=== PATIENT | female | born 1970 | race Caucasian/White ===

== ENCOUNTER 2018-02-26 07:33 | Emergency (ER) | payer BC ==
[2018-02-26 07:42] VITALS: BP 124/90
[2018-02-26] MEDS ORDERED: Ibuprofen TAB* 600 MG PO ONE (08:15)
--- NOTE | 2018-02-26 08:17 | UC ---
Knee Pain HPI - HPI Summary HPI Summary: 47 yo F c/o several days of pain in R lateral knee. Pain worsens when climbing/ descending stairs or when bending the knee. She has no swelling of the knee or leg. Denies injury to the area. Is ambulatory w/o difficulty. Has no known PMH. No reduced ROM. no weakness/numbness. has single relative (an aunt), who of "blood clot." no first degree relatives. meds reviewed w patient - History of Current Complaint Chief Complaint: UCLowerExtremity Stated Complaint: LEG PAIN Time Seen by Provider: 02/26/18 08:11 Hx Obtained From: Patient Hx Last Menstrual Period: 02/16/18 Pain Intensity: 7 - Allergies/Home Medications Allergies/Adverse Reactions: Allergies Allergy/AdvReac Type Severity Reaction Status Date / Time minocycline Allergy Hives Verified 02/26/18 07:44 PMH/Surg Hx/FS Hx/Imm Hx Other History Of: Negative For: Anticoagulant Therapy - Surgical History Surgical History: Yes Surgery Procedure, Year, and Place: GALLBLADDER, 14 YRS AGO, [facility] [place]. TUBAL 2001, [facility] [place]. LEFT LEG SURGERY AGE 17 - FRACTURES - TENDON & LIGAMENT REPAIR FROM ACCIDENT. D&C x2 - Social History Alcohol Use: Rare Alcohol Amount: 1-2 PER YEAR Substance Use Type: None Smoking Status (MU): Former Smoker Amount Used/How Often: PACK A DAY Have You Smoked in the Last Year: No When Did the Patient Quit Smoking/Using Tobacco: 14 YRS Review of Systems Skin: Bruising - varicose veins of legs All Other Systems Reviewed And Are Negative: Yes Physical Exam Triage Information Reviewed: Yes Appearance: Well-Appearing, No Pain Distress, Well-Nourished Vital Signs: Initial Vital Signs Temp 97.2 F 02/26/18 07:37 Pulse 73 02/26/18 07:37 Resp 16 02/26/18 07:37 BP 124/90 02/26/18 07:37 Pulse Ox 98 02/26/18 07:37 Vital Signs Reviewed: Yes Eyes: Positive: Conjunctiva Clear Respiratory: Positive: No respiratory distress, No accessory muscle use Abdomen Description: Positive: Other: - obese. Negative: Distended Musculoskeletal: Positive: Strength Intact, No Edema, Other: - LEs symmetric. RLE warm, well perfused, no calf tenderness, negative Homman's sign. mild TTP of postero-lateral (R) Right knee and extending along lateral superior R lower leg. Negative: ROM Limited @ Neurological: Positive: Alert, Muscle Tone Normal. Negative: Fatigued, Lethargic Psychological: Positive: Age Appropriate Behavior Knee Pain Course/Dx - Course Course Of Treatment: given ibuprofen - Differential Dx/Diagnosis Differential Diagnosis/HQI/PQRI: Contusion, Sprain, Strain, Tendonitis, Other Provider Diagnoses: tendonitis Discharge - Sign-Out/Discharge Documenting (check all that apply): Patient Departure All imaging exams completed and their final reports reviewed: No Studies - Discharge Plan Condition: Stable Disposition: HOME Patient Education Materials: Knee Pain (ED) Referrals: Candido Hidalgo MD [Primary Care Provider] - Additional Instructions: Take ibuprofen 600 mg as needed for pain. If pain persists, see your doctor for referral to an Orthopedist - Billing Disposition and Condition Condition: STABLE Disposition: Home
== END 2018-02-26 08:30 | disposition home or self-care (01) ==
LOC: UCEAST 07:33
DX: M76.9 Unspecified enthesopathy, lower limb, excluding foot (principal); Z88.1 Allergy status to other antibiotic agents; Z87.891 Personal history of nicotine dependence
CPT/HCPCS: 99212; A9270-GY; G0463

== ENCOUNTER 2018-06-12 10:17 | Emergency (ER) | payer BC ==
[2018-06-12 11:07] VITALS: BP 149/77
--- NOTE | 2018-06-12 11:39 | UC ---
Throat Pain/Nasal [place] HPI - HPI Summary HPI Summary: 48 y/o female presents to the urgent care c/o productive cough , sore throat and URI symptoms for the past week. Pt reports symptoms started with the common cold, but now cough is worse at night. Unable to sleep at night due to cough. She had developed mild SOB and mild wheezing since yesterday. Sore throat is 6/ 10. She has taken OYC medications w/o any improvement. LMP:06/04/2018.w/ regular menstrual cycles. Pt denies fever today, chest pain, abdominal pain, N/V/D. - History of Current Complaint Chief Complaint: UCRespiratory Stated Complaint: SORE THROAT, COUGH Time Seen by Provider: 06/12/18 11:38 Hx Obtained From: Patient Hx Last Menstrual Period: 06/08/17 ?: No Onset/Duration: Gradual Onset, Lasting Weeks - 1 week, Still Present, Worse Since - 2 days Severity: Moderate Pain Intensity: 7 Pain Scale Used: 0-10 Numeric - Allergies/Home Medications Allergies/Adverse Reactions: Allergies Allergy/AdvReac Type Severity Reaction Status Date / Time minocycline Allergy Hives Verified 06/12/18 11:07 PMH/Surg Hx/FS Hx/Imm Hx Previously Healthy: Yes Other Endocrine History: anemia Respiratory History: Bronchitis, Pneumonia Other History Of: Negative For: Anticoagulant Therapy - Surgical History Surgical History: Yes Surgery Procedure, Year, and Place: GALLBLADDER, 14 YRS AGO, [facility] – [place]. TUBAL 2001, [facility] – [place]. LEFT LEG SURGERY AGE 17 - FRACTURES - TENDON & LIGAMENT REPAIR FROM ACCIDENT. D&C x2 - Family History Known Family History: Positive: Hypertension, Diabetes - Social History Occupation: Employed Full-time Lives: With Family Alcohol Use: Rare Alcohol Amount: 1-2 PER YEAR Substance Use Type: None Smoking Status (MU): Former Smoker Amount Used/How Often: PACK A DAY Have You Smoked in the Last Year: No When Did the Patient Quit Smoking/Using Tobacco: 14 YRS Review of Systems All Other Systems Reviewed And Are Negative: Yes Constitutional: Positive: Fever - low grade fever at the beginning of symptoms Skin: Positive: Negative Eyes: Positive: Negative ENT: Positive: Sore Throat, Ear Ache - B/L ear pressure, Nasal Discharge - yellowish, Sinus Congestion Respiratory: Positive: Cough - productive w/ yellowish phlegm, Other - wheezing Cardiovascular: Positive: Negative Gastrointestinal: Positive: Negative Genitourinary: Positive: Negative Motor: Positive: Negative Neurovascular: Positive: Negative Musculoskeletal: Positive: Negative Neurological: Positive: Negative Psychological: Positive: Negative Is Patient Immunocompromised?: No Physical Exam - Summary Physical Exam Summary: Vital Signs Reviewed: Yes General: well developed, well nourished female sitting in the examining table w/ o any apparent distress Eyes: Positive: Conjunctiva Clear - PERRLA, EOMI, fundi grossly normal ENT: Positive: Normal ENT inspection, Hearing grossly normal, Pharynx normal, Nasal congestion - edematous and erythematous nasal mucosa, Nasal drainage - yellowish drainage, B/L external ear canals impacted with cerumen unable to visualize TM's. Negative: Tonsillar swelling, Tonsillar exudate Neck: Positive: Supple, Nontender, No Lymphadenopathy Respiratory: no orthopnea or dyspnea. Able to speak in full sentences, no retractions or accessory muscle use, no tripod position, stridor, or head bobbing. Positive breath sounds bilaterally. RT posterior lung w/ diffuse scattered wheezing and rhonchi , no crackles or rales. Cardiovascular: Positive: RRR, No Murmur, Pulses Normal, Brisk Capillary Refill Abdomen Description: Positive: Nontender, No Organomegaly, Soft. Negative: CVA Tenderness (R), CVA Tenderness (L) Bowel Sounds: Positive: Present Musculoskeletal Exam: Normal Musculoskeletal: Positive: Strength Intact, ROM Intact, No Edema Neurological Exam: Normal Psychological Exam: Normal Skin Exam: Normal Triage Information Reviewed: Yes Vital Signs: Initial Vital Signs Temp 98 F 06/12/18 11:03 Pulse 94 06/12/18 11:03 Resp 18 06/12/18 11:03 BP 149/77 06/12/18 11:03 Pulse Ox 98 06/12/18 11:03 Throat Pain/Nasal Course/Dx - Course Course Of Treatment: 48 y/o female presents to the urgent care c/o productive cough , sore throat and URI symptoms for the past week. Pt reports symptoms started with the common cold, but now cough is worse at night. Unable to sleep at night due to cough. She had developed mild SOB and mild wheezing since yesterday. Sore throat is 6/10. She has taken OTC medications w/o any improvement. LMP:06/04/2018.w/ regular menstrual cycles. Pt denies fever today, chest pain, abdominal pain, N/V/D.Hx obtained. Pt w/ RT posterior lung w/ diffuse scattered wheezing and rhonchi.O2SAt:98%. Also B/L external ear canal impacted w/ cerumen on examination. Chesxt X-ray ordered: No acute cardiopulmonary disease observed. B/L ear irrigation ordered and performed by nurse. Pt tolerated well procedure and ears completely clear. Pt given albuterol Txbyt nurse. B/L lungs clear after treatment. Pt will be Tx for bronchitis w/ Z-bernard and Albuterol inhaler to alleviate wheezing. Pt advised to f /u with PCP if not improvment of symptoms.Pt's BP is elevated today advised to decrease salt in diet, monitor BP and f/u with PCP for further management. D/C intructions explained. Pt understood and agreed w/ plan of care and left the clinic hemodynamically stable. - Differential Dx/Diagnosis Differential Diagnosis/HQI/PQRI: Influenza, Laryngitis, Otitis Media, Pharyngitis, URI, Other - bronchitis, pneumonia Provider Diagnosis: Acute bronchitis, Elevated BP without diagnosis of hypertension, Impacted cerumen of both ears, Wheezing Discharge - Sign-Out/Discharge Documenting (check all that apply): Patient Departure - D/c home All imaging exams completed and their final reports reviewed: Yes - Discharge Plan Condition: Stable Disposition: HOME Prescriptions: Albuterol HFA INHALER* [Ventolin HFA Inhaler*] 1 - 2 puff INH Q6H PRN #1 mdi PRN Reason: brochospasm Azithromyxin BERNARD (NF) [Z-Bernard (Zithromax) 250 mg tabs #6] 2 tab PO .TODAY, THEN 1 DAILY #6 tab Patient Education Materials: Cerumen Impaction (ED), Acute Bronchitis (ED) Forms: *Work Release Referrals: Candido Hidalgo MD [Primary Care Provider] - 3 Days Additional Instructions: 1-Please take full course of antibiotic to avoid resistance. 2-Take Robitussin or Delsym PO and use the albuterol inhaler to alleviate cough. Increase fluid intake, rest and eat well. 3- If symptoms do not improve or worsen or your develop SOB with fever and severe wheezing please go immediately to the ER further evaluation and treatment. 4- Please F/u with your PCP in 3 days if symptoms are not improving for further management 5- Your BP is elevated today. please decrease salt in your diet, monitor BP and if it continues to be elevated please f/u with your PCP for further management. - Billing Disposition and Condition Condition: STABLE Disposition: Home
[2018-06-12] MEDS ORDERED: Albuterol/Ipratropium NEB.SOL* Albuterol 2.5 MG/Ipratropium 0.5 MG 3 ML INH ONE (11:51)
== END 2018-06-12 13:32 | disposition home or self-care (01) ==
LOC: UCEAST 10:17
DX: J20.9 Acute bronchitis, unspecified (principal); R03.0 Elevated blood-pressure reading, without diagnosis of hypertension; H61.23 Impacted cerumen, bilateral; Z88.1 Allergy status to other antibiotic agents; Z87.891 Personal history of nicotine dependence
CPT/HCPCS: 71046; 99212; A9270-GY; G0463